=== PATIENT | male | born 1945 | race Two or more races ===

== ENCOUNTER 2022-03-11 21:08 | Emergency (ER) | payer MEDICAID ==
[~2022-03-11] VITALS: Ht 172.7 cm; Wt 68.0 kg
[2022-03-11] MEDS ORDERED: VANCOMYCIN IV 1,000 MG in IV DEXTROSE 5% 250 ML IV ONE (21:15)
[2022-03-11] MEDS ORDERED: IV NORMAL SALINE 1000 ML BAG IV ONE (21:15)
[2022-03-11] MEDS ORDERED: CALCIUM CHLORIDE 1 GM/10 ML DISP.SYRIN IV ONE (21:19)
[2022-03-11] MEDS ORDERED: EPINEPHRINE 1:10,000 1 MG/10 ML DISP.SYRIN IV ONE (21:19)
[2022-03-11] MEDS ORDERED: PIPERACILLIN SODIUM/TAZOBACTAM 4.5 G in IV DEXTROSE 5% 50 ML IV SCH (22:00)
[2022-03-11 22:01] LABS: HEMATOCRIT 26.6 % (36.7-47.1); MEAN CORPUSCULAR HEMOGLOBIN 32.7 uug (23.8-33.4); MEAN CORPUSCULAR VOLUME 101.8 fL (73.0-96.2); PLATELET COUNT (AUTO) 353 K/uL (152-348)
[2022-03-11 22:23] LABS: CARBON DIOXIDE 13 mmol/L (21-32); CHLORIDE 97 mmol/L (98-107); CREATININE 3.6 mg/dL (0.6-1.3); POTASSIUM 4.7 mmol/L (3.5-5.1)
--- NOTE | 2022-03-11 22:24 | NUR ---
Called [facility] and spoke to Mariposa who states patient does not meet tissue or organ donor . Gave Case # [id number].
[2022-03-11 22:31] LABS: GLUCOSE 356 mg/dL (74-106); UREA NITROGEN, BLOOD 98 mg/dL (7-18)
--- NOTE | 2022-03-11 22:35 | NUR ---
Late Entry: BIB access specialist from facility @ 2109 s/p aspiration, arrived with angonal respirations, ambu bag in use, heart rate nael in the 30's. Patient moved into room 1a @ 2114, MD at bedside for exam, respiratory at bedside and 3 RN's. Patient placed on monitor, MD preparing to intubate. Patient intubated @ 2120 and placed on vent per MD settings, Patient heart rate in the 20's, normal saline w/o infusing as per MD order. Radiology at bedside for chest xray @ 2123, 2127 spoke with daughter re: code status, ACLS medications started @ 2128 with 1/2 amp atropine, 2129 another 1/2 amp of atropine, 2nd line started in right lower arm #20g, unable to draw blood at this time. 16fr NG tube placed in left nare, placement checked by ER MD at this time. compression started and held per MD order, 2130 1 amp of epi given , 2137 calcium chloride 1 amp given, 2142 lab at bedside for draw. 2149 MD aware unable to get blood pressure, pulse ox and patient is asystole, cool to touch with mottling noted around neck and chest area, remains on vent. MD back to bedside @ 2204 and patient was pronounced at 2209 by ER MD.
--- NOTE | 2022-03-11 22:38 | NUR ---
[facility] Terell who states patient is not a drop forger case.
--- NOTE | 2022-03-12 01:12 | NUR ---
Late entry: Post- mortem care was done,family members were at bedside, [facility]
== END 2022-03-12 01:00 ==
LOC: ER 21:18
DX: I21.9 Acute myocardial infarction, unspecified (principal); J69.0 Pneumonitis due to inhalation of food and vomit; I50.9 Heart failure, unspecified; E11.9 Type 2 diabetes mellitus without complications; Z86.73 Personal history of transient ischemic attack (TIA), and cerebral infarction without residual deficits; F03.90 Unspecified dementia, unspecified severity, without behavioral disturbance, psychotic disturbance, mood disturbance, and anxiety
CPT/HCPCS: 99291; 96360; 80048; 83880; 85025; 84145; 87040 ×2; 84484; 93005; 71045; 83605; 92950; 31500; J3490; J0171; J7040; 70030-TC; A4663